=== PATIENT | male | born 1940 | race Caucasian/White ===

== ENCOUNTER 2018-02-23 06:09 | Day surgery (SDC) | payer OTHER ==
[2018-02-23] MEDS ORDERED: diphenhydrAMINE 25 MG CAP PO ONE ×2 (06:15→06:54)
[2018-02-23] MEDS ORDERED: FAMOTIDINE 20 MG TAB PO ONE (06:15)
[2018-02-23] MEDS ORDERED: ASPIRIN EC 325 MG TAB PO ONE ×2 (06:15→06:55)
[2018-02-23] MEDS ORDERED: NS 1,000 ML IV ONE (06:15)
[2018-02-23] MEDS ORDERED: DIAZEPAM 5 MG TAB PO ONE (06:15)
[2018-02-23] MEDS ORDERED: FAMOTIDINE 20 MG TAB ONE (06:54)
[2018-02-23] MEDS ORDERED: DIAZEPAM 5 MG TAB ONE (06:55)
[2018-02-23 07:05] LABS: PLATELET COUNT 199 10^3/uL (150-400)
[2018-02-23 07:13] LABS: INR 1.02 (0.83-1.16); PROTIME(PATIENT) 13.6 SEC (12.0-15.0)
[2018-02-23] MEDS ORDERED: LIDOCAINE 1% 300 MG/30 ML SDV ONE (07:46)
[2018-02-23] MEDS ORDERED: IOPAMIDOL (ISOVUE-370) 150 ML BTL IV ONE (07:46)
[2018-02-23] MEDS ORDERED: MIDAZOLAM 2 MG/2 ML VIAL ONE (07:46)
[2018-02-23] MEDS ORDERED: fentaNYL 100 MCG/2 ML INJ ONE (07:46)
--- NOTE | 2018-02-23 08:55 | PDHPUP ---
History & Physical Update H&P update statement: This history and physical update is based on an assessment of the patient which was completed after admission or registration (within 24 hours), but prior to the surgery/procedure. H&P update: H&P reviewed & patient examined, no change in patient's condition since H&P completed
--- NOTE | 2018-02-23 08:55 | PDPROPOC ---
Sedation Plan of Care Sedation Plan of Care: vital signs stable, mental status noted, patient educated of risks, benefits, alternatives, patient can tolerate sedation ASA Classification: ASA 2 Planned drugs: fentanyl, midazolam Mallampati Score: Class 2 Mallampati Reference Image: Patient passed 3-3-2 rule?: Yes
[2018-02-23] MEDS ORDERED: ATROPINE SULFATE 1 MG/10 ML SYR IVP PRN (10:15)
[2018-02-23] MEDS ORDERED: HYDROCODONE/APAP 5/325 TAB PO PRN (10:15)
--- NOTE | 2018-02-23 10:20 | PDDXCAT ---
Diagnostic Cath Note - . Date: 02/23/18 Operator Assistant I Cementing: Sumeet Indication: other (CAD with h/o CABG; recent chest pain in the setting of SVT.) - Procedure Access: right groin Procedure: left heart catheterization, coronary angiography, left ventriculogram , vein graft injection, CHAUHAN injection - Materials Left Heart Cath size: 6F Left Heart Cath materials: standard multipack (JL4, JR4, pigtail) - Findings-Left Heart Catheterization LM: Normal. LAD: Proximal LAD 60%; o/w minimal irregularities. LCX: Minimal irregularites. RCA: Mid-RCA 100% at the site of prior stent placement. rSVG: SVG to RCA patent; target vessel with minimal irregularities. CHAUHAN: CHAUHAN to LAD patent; target vessel with minimal irregularities. LVEF: 60% Wall motion: Normal Complications: None Estimated blood loss: <50ml Closure method: Angioseal Assessment: 1) CAD as described above. 2) Two out of two bypass grafts patent. 3) Normal LV systolic function. Patient Problems: Problems Problem Status Onset Atrial fibrillation or flutter Acute CAD (coronary artery disease) Acute
--- NOTE | 2018-02-23 11:19 | CPEKG ---
Test Reason : OPEN Blood Pressure : / mmHG Vent. Rate : 082 BPM Atrial Rate : 082 BPM P-R Int : 142 ms QRS Dur : 103 ms QT Int : 433 ms P-R-T Axes : 078 053 033 degrees QTc Int : 506 ms Atrial-paced rhythm Nonspecific T abnormalities, anterior leads Prolonged QT interval Confirmed by Jesse Hubbard [id number] on 02/23/2018 11:18:45 AM Referred By: Confirmed By:Jesse Hubbard
== END 2018-02-23 14:32 | disposition home or self-care (01) ==
LOC: FCATH 06:09
PROVIDERS: ATTEND Internal Medicine Interventional Cardiology
DX: I48.92 Unspecified atrial flutter (principal); I25.10 Atherosclerotic heart disease of native coronary artery without angina pectoris; I34.0 Nonrheumatic mitral (valve) insufficiency; I10 Essential (primary) hypertension; E78.5 Hyperlipidemia, unspecified; Z95.1 Presence of aortocoronary bypass graft
CPT/HCPCS: C1760; J1644; J2250; J3010; Q9967